=== PATIENT | male | born 1995 | race Two or more races ===

== ENCOUNTER 2017-06-01 14:33 | Emergency (ER) | payer OTHER ==
[~2017-06-01] VITALS: Ht 188 cm; Wt 78.9 kg
--- NOTE | 2017-06-01 16:09 | NUR ---
PT. VERBALIZED UNDERSTANDING OF AFTERCARE INSTRUCTIONS.Patient discharged to home in stable condition. Written and verbal after care instructions given. Patient verbalizes understanding of instruction.
[2017-06-01 16:40] VITALS: BP 144/64
== END 2017-06-01 16:41 | disposition home or self-care (01) ==
LOC: ER 14:34
DX: R11.2 Nausea with vomiting, unspecified (principal)
CPT/HCPCS: A4606; Q0162; Z7610